=== PATIENT | female | born 1955 | race Caucasian/White ===

== ENCOUNTER 2023-03-10 17:51 | Emergency (ER) | payer BC ==
[~2023-03-10] VITALS: Ht 157.5 cm; Wt 83.9 kg
--- NOTE | 2023-03-10 18:11 | NUR ---
Patient to ER bed 4 to gown for evaluation. Side rails up. Report given to IVONE RN.
[2023-03-10 18:14] VITALS: BP_SYST 145
--- NOTE | 2023-03-10 18:22 | NUR ---
PT BIB SELF FROM URGENT CARE WITH C/O HYPONATRIMIA. PT STATES SHE WAS FEELING DIZZY AND WAS HAVING MUSCLE CRAMPS ALL MORNING WHICH PROMPT HER TO SEEK CARE AT AN URGENT CARE. AT THE URGENT CARE SHE WAS DIAGNOSED WITH HYPONATREMIA AND WAS TOLD TO SEEK CARE AT THE ED. 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 SAFETY PRECUATIONS AND COMFORT MEASURES IN PLACE. PENDING MD HOLT AND ORDERS.
--- NOTE | 2023-03-10 18:25 | NUR ---
DR. INMAN AT BEDSIDE EXAMINING THE PT.
[2023-03-10] MEDS ORDERED: NACL 0.9% 1,000 ML IV ONE ×2 (18:45→20:15)
[2023-03-10 19:03] LABS: BASOPHILS % (AUTO) 0.4 % (0.0-2.0); EOSINOPHILS # (AUTO) 0.1 K/uL (0.0-0.4); EOSINOPHILS % (AUTO) 1.9 % (0.0-4.0); HEMATOCRIT 38.1 % (36-48); HEMOGLOBIN 12.9 g/dL (12.0-16.0); LYMPHOCYTES # (AUTO) 2.2 K/uL (1.0-5.5); LYMPHOCYTES % (AUTO) 36.2 % (20.5-51.5); MEAN CORPUSCULAR HEMOGLOBIN 31 pg (27-31); MEAN CORPUSCULAR HGB CONC 34 % (32-36); MEAN CORPUSCULAR VOLUME 92 fL (79.0-98.0); MONOCYTES # (AUTO) 0.6 K/uL (0.0-1.0); MONOCYTES % (AUTO) 9.5 % (1.7-9.3); NEUTROPHILS # (AUTO) 3.1 K/uL (1.8-7.7); PLATELET COUNT (AUTO) 190 K/uL (130-430); RED BLOOD CELL COUNT(AUTO) 4.15 MIL/uL (4.2-6.2); RED CELL DISTRIBUTION WIDTH 12.5 % (9.0-15.0)
[2023-03-10 19:11] LABS: CALCIUM 8.1 mg/dL (8.4-11.0); CREATININE 0.9 mg/dL (0.55-1.30)
[2023-03-10 19:16] LABS: ALBUMIN 3.4 g/dL (3.4-4.8); TOTAL BILIRUBIN 0.7 mg/dL (0.0-1.0); URIC ACID 3.9 mg/dL (2.4-7.0)
--- NOTE | 2023-03-10 20:57 | NUR ---
PATIENT STABLE VITALS SIGNS IN NORMAL LIMITS NOT COMPLAINING OF PAIN AT THIS TIME
[2023-03-10 23:15] VITALS: BP_SYST 128
--- NOTE | 2023-03-10 23:18 | NUR ---
PATIENT STABLE DC HOME VITALS SIGNS IN NORMAL LIMITS ALL DC INSTRUCTION GAVE AND EXPLAINE WE RECOMMENDED TO FOLLOW UP WITH PCP
== END 2023-03-10 23:15 | disposition home or self-care (01) ==
LOC: SED 17:51
DX: E87.1 Hypo-osmolality and hyponatremia (principal); E86.0 Dehydration; R42 Dizziness and giddiness; Z88.0 Allergy status to penicillin; Z79.899 Other long term (current) drug therapy
CPT/HCPCS: 99283; 96360; 96361; 80053; 82550; 83735; 84550; 85025; 36415; 84295; J7030